=== PATIENT | male | born 1985 | race Caucasian/White ===

== ENCOUNTER → 2019-08-01 | Outpatient (CLI) | payer BC ==
--- NOTE | 2019-08-01 15:27 | KCIC ---
MR of the right upper arm HISTORY: Biceps injury 10 days ago. Deformity, pain, bruising at the distal biceps muscle. TECHNIQUE: Routine multiplanar sequences are obtained including the mid humerus through the elbow. FINDINGS: Complete rupture of the biceps tendon from the radial insertion. The tendon is proximally retracted 9 cm. Mild fluid/hemorrhage along the course of the tear and around the distal muscle. Minimal edema within the distal biceps muscle. Brachialis tendon appears intact. Triceps tendon intact. Suboptimal evaluation of the medial and lateral collateral structures due to the large [id number] which was used but no obvious acute disruption. No evidence of acute fracture, marrow edema or bone destruction. No significant elbow joint effusion. IMPRESSION: Complete distal biceps tendon rupture with 9 cm proximal retraction. Electronically signed by: Tunde Villar MD (08/01/2019 3:24 PM) [id number]
== END | disposition home or self-care (01) ==
LOC: KCIC MRI 13:30
PROVIDERS: ATTEND Orthopaedic Surgery
DX: S46.211A Strain of muscle, fascia and tendon of other parts of biceps, right arm, initial encounter (principal); X58.XXXA Exposure to other specified factors, initial encounter; Y93.89 Activity, other specified; Y92.89 Other specified places as the place of occurrence of the external cause; Y99.8 Other external cause status
CPT/HCPCS: 73218